=== PATIENT | male | born 2000 ===

== ENCOUNTER 2019-07-29 02:15 | Emergency (ER) | payer BC ==
[2019-07-29 02:44] LABS: BARBITURATE SCREEN,URINE NEGATIVE (NEGATIVE); BENZODIAZEPINES SCREEN,URINE NEGATIVE (NEGATIVE); EDDP,URINE SCREEN NEGATIVE (NEGATIVE); METHAMPHETAMINE SCREEN, URINE NEGATIVE (NEGATIVE); TCA SCREEN,URINE NEGATIVE (NEGATIVE); THC SCREEN,URINE 50 NG/ML NEGATIVE (NEGATIVE)
[2019-07-29 02:56] LABS: CHLORIDE,CL 107 mmol/L (54-184); SODIUM,NA 146 mmol/L (69-191)
[2019-07-29 02:57] LABS: ANION GAP 20.1 mmol/L (10-20)
--- NOTE | 2019-07-29 02:57 | EDM.PDOCBH ---
ED HPI GENERAL MEDICAL PROBLEM - General Chief Complaint: Drug or Alcohol Abuse Stated Complaint: Detox Time Seen by Provider: 07/29/19 02:25 Source of Information: Reports: Patient, Police History Limitations: Reports: No Limitations - History of Present Illness INITIAL COMMENTS - FREE TEXT/NARRATIVE: Patient presents to ER with police for medical clearance for detox. He had gotten in to an argument with his parents earlier as well as his girlfriend was concerned about him. He had made a comment that he was going to jump off the balcony of his apartment. Earlier, he had ran around outside, was laying on the ground and concerned that he was trying to run out in front of cars. He denies being suicidal. Does admit that he made the comment about the balcony but states "would never actually do that". Denies running out in front of vehicles. Admits that he has drank heavily tonight, consumed much whiskey. History of alcoholism. Recently got out of treatment for this, has been sober for 32 days. "the craving for alcohol just got to him today". Does admit to history of depression, is currently on Sertraline. Doesn't feel it has helped him all that much as has been taking it since he was 12. States gets frustrated that "he can't just have a drink like everyone else, knows that he will never stop at 1-2". Aware he has a drinking problem. Denies chest pain, shortness of breath, nausea, vomiting or abdominal pain. Onset: Today Duration: Hour(s): Location: Reports: Generalized Associated Symptoms: Denies: Confusion, Chest Pain, Cough, Fever/Chills, Loss of Appetite, Nausea/Vomiting, Shortness of Breath - Related Data Allergies Allergy/AdvReac Type Severity Reaction Status Date / Time No Known Allergies Allergy Verified 07/29/19 02:43 Past Medical History Psychiatric History: Reports: Depression Social & Family History - Tobacco Use Smoking Status *Q: Never Smoker - Alcohol Use Alcohol Use History: Yes ED ROS GENERAL - Review of Systems Review Of Systems: See Below Constitutional: Denies: Fever, Chills, Malaise, Weakness, Decreased Appetite HEENT: Denies: Ear Pain, Sinus Problem, Throat Pain, Vertigo Respiratory: Denies: Shortness of Breath, Cough Cardiovascular: Denies: Chest Pain, Edema, Lightheadedness Endocrine: Denies: Fatigue GI/Abdominal: Denies: Abdominal Pain, Nausea, Vomiting : Reports: No Symptoms Musculoskeletal: Reports: No Symptoms Skin: Reports: No Symptoms Neurological: Reports: No Symptoms Psychiatric: Reports: No Symptoms ED EXAM, BEHAVIORAL HEALTH - Physical Exam Exam: See Below Exam Limited By: No Limitations General Appearance: Alert, WD/WN, No Apparent Distress Eye Exam: Bilateral Eye: PERRL Ears: Normal External Exam, Normal TMs Nose: Normal Inspection, Normal Mucosa, No Blood Throat/Mouth: Normal Inspection, Normal Oropharynx Head: Normocephalic Neck: Normal Inspection, Supple, Non-Tender Respiratory/Chest: No Respiratory Distress, Lungs Clear, Normal Breath Sounds Cardiovascular: Regular Rate, Rhythm GI/Abdominal: Normal Bowel Sounds, Soft, Non-Tender Extremities: Normal Inspection, No Pedal Edema Neurological: Alert, Normal Mood/Affect, CN II-XII Intact, Oriented x 3 Skin Exam: Warm, Dry COURSE, BEHAVIORAL HEALTH COMP - Course Orders, Labs, Meds: Active Orders 24 hr Category Date Time Status BASIC METABOLIC PANEL,BMP [CHEM] Stat Lab 07/29/19 02:26 Ordered ETHANOL BLOOD MEDICAL [CHEM] Stat Lab 07/29/19 02:25 Ordered Laboratory Tests 07/29/19 07/29/19 Range/Units 02:25 02:38 WBC 8.2 (4.0-10.0) x10^3/uL RBC 5.14 (4.5-6.0) x10^6/uL Hgb 16.9 (14.0-18.0) g/dL Hct 47.9 (40.0-52.0) % MCV 93.2 H (78.0-93.0) fL MCH 32.9 H (26.0-32.0) pg MCHC 35.3 (32.0-36.0) g/dL RDW Coeff of Sidra 11.2 (10.0-15.0) % Plt Count 264 (130-400) x10^3/uL Neut % (Auto) 54.0 (50.0-80.0) % Lymph % (Auto) 39.9 (25.0-50.0) % [place] % (Auto) 5.3 (2.0-11.0) % Eos % (Auto) 0.4 (0.0-4.0) % Baso % (Auto) 0.4 (0.2-1.2) % Urine Opiates Screen Negative (NEAGTIVE) Ur Buprenorphine Scrn Negative (NEGATIVE) Ur Oxycodone Screen Negative (NEGATIVE) Ur EDDP (Meth Metab) Negative (NEGATIVE) Urine Methadone Screen Negative (NEGATIVE) Ur Barbiturates Screen Negative (NEGATIVE) Ur Tricyclics Screen Negative (NEGATIVE) Ur Phencyclidine Scrn Negative (NEGATIVE) Ur Amphetamine Screen Negative (NEGATIVE) U Methamphetamines Scrn Negative (NEGATIVE) Urine MDMA Screen Negative (NEGATIVE) U Benzodiazepines Scrn Negative (NEGATIVE) U Cocaine Metab Screen Negative (NEGATIVE) U Marijuana (THC) Screen Negative (NEGATIVE) Medical Clearance: 07/29/19 03:00 Labs are all essentially normal. ETOH 275. Drug screen clear Departure - Departure Time of Disposition: 03:03 Disposition: Home, Self-Care 01 Condition: Fair Clinical Impression: Alcohol abuse - Discharge Information *PRESCRIPTION DRUG MONITORING PROGRAM REVIEWED*: No *COPY OF PRESCRIPTION DRUG MONITORING REPORT IN PATIENT YOLI: No Referrals: Lucio Anton NP [Primary Care Provider] - Additional Instructions: 1. Push fluids 2. Release to police department - My Orders Last 24 Hours: My Active Orders 07/29/19 02:25 ETHANOL BLOOD MEDICAL [CHEM] Stat 07/29/19 02:26 BASIC METABOLIC PANEL,BMP [CHEM] Stat - Assessment/Plan Last 24 Hours: My Active Orders 07/29/19 02:25 ETHANOL BLOOD MEDICAL [CHEM] Stat 07/29/19 02:26 BASIC METABOLIC PANEL,BMP [CHEM] Stat
== END 2019-07-29 03:07 | disposition home or self-care (01) ==
LOC: VM.ED 02:15
DX: F10.20 Alcohol dependence, uncomplicated (principal); F32.9 Major depressive disorder, single episode, unspecified; Y90.8 Blood alcohol level of 240 mg/100 ml or more
CPT/HCPCS: 36415; 80048; 80305-QW; 85025; 99283; G0480

== ENCOUNTER 2019-08-19 21:15 | Emergency (ER) | payer BC ==
[2019-08-19] MEDS ORDERED: chlordiazePOXIDE 25 MG Cap PO ONE ×2 (21:53→22:21)
--- NOTE | 2019-08-19 22:16 | EDM.PDOC ---
ED HPI GENERAL MEDICAL PROBLEM - General Chief Complaint: General Stated Complaint: ER Time Seen by Provider: 08/19/19 21:35 Source of Information: Reports: Patient History Limitations: Reports: Intoxication - History of Present Illness INITIAL COMMENTS - FREE TEXT/NARRATIVE: Patient comes into the emergency department for complaint of intoxication. The patient states that he's been drinking a 175 mL of whiskey for the last 2 weeks. She does have an extensive history of alcohol use. He was actually in inpatient drug rehabilitation the entire month of June he states that he was in [facility] out of [facility] for a period of 32 days. He was able to maintain sobriety that entire time however 7 days after he left the rehabilitation Center he ended up relapsing to his current state and has been drinking approximately 175ml per day of whiskey. His last drink was this evening at 7 PM. He also does have a history of began admitted to the hospital for alcohol withdrawal symptoms his last hospitalization the girlfriend states was approximately 4 months ago when he ended up having a seizure and was transported to the ICU and ended up stand 4 days in the ICU for withdrawal syndrome and seizure cautions. Patient states that he has been waking up and drinking immediately for he has tremor sensation and feels agitated. He does drink prior to going to work he does have a few drinks while he is at work and then continues to drink after work until he passes out in the evening. Again as stated above this is been his routine for the last 2 weeks. He denies any suicidal ideation plans or intent. However his girlfriend does state that when he excessively drinks at times he can become emotional and he'll often think that he is better off without being on this earth. Currently he denies having any of these thoughts, plan, or intent. He currently denies having those thoughts this evening. He is also currently on Zoloft 200 mg daily as well as hydroxyzine HCL 25 mg 3 times a day for anxiety and depressive symptoms. He states he has been taking his medications as prescribed. Onset: Gradual Severity: Moderate Improves with: Reports: None Worsens with: Reports: None Associated Symptoms: Reports: No Other Symptoms - Related Data Allergies Allergy/AdvReac Type Severity Reaction Status Date / Time No Known Allergies Allergy Verified 08/19/19 22:56 Home Meds: Home Meds Sertraline [Zoloft] 200 mg PO DAILY 07/29/19 [History] hydrOXYzine HCl [hydrOXYzine] 25 mg PO TID PRN 08/19/19 [History] Past Medical History Cardiovascular History: Reports: Hypertension, Other (See Below) Other Cardiovascular History: Elevated BP without diagnosis of hypertension Gastrointestinal History: Reports: GERD, Other (See Below) Other Gastrointestinal History: Abnormal LFTs. C. Difficile Genitourinary History: Reports: Other (See Below) Other Genitourinary History: Microscopic hematuria Psychiatric History: Reports: Depression Other Psychiatric History: Alcohol Abuse. Tobacco Abuse Endocrine/Metabolic History: Reports: Other (See Below) Other Endocrine/Metabolic History: Hypomagnesemia. Hypokalemia Hematologic History: Reports: Other (See Below) Other Hematologic History: Thrombocytopenia - Infectious Disease History Infectious Disease History: Reports: C-Difficile ED ROS GENERAL - Review of Systems Review Of Systems: Comprehensive ROS is negative, except as noted in HPI. Constitutional: Reports: No Symptoms HEENT: Reports: No Symptoms Respiratory: Reports: No Symptoms Cardiovascular: Reports: No Symptoms Endocrine: Reports: No Symptoms GI/Abdominal: Reports: No Symptoms : Reports: No Symptoms Musculoskeletal: Reports: No Symptoms Skin: Reports: No Symptoms Neurological: Reports: No Symptoms Psychiatric: Reports: No Symptoms Hematologic/Lymphatic: Reports: No Symptoms Immunologic: Reports: No Symptoms ED EXAM, GENERAL - Physical Exam Exam: See Below Exam Limited By: No Limitations General Appearance: Alert, WD/WN, No Apparent Distress Throat/Mouth: Normal Inspection, Normal Lips, Normal Teeth, Normal Gums, Normal Oropharynx, Normal Voice, No Airway Compromise Head: Atraumatic Neck: Normal Inspection, Supple, Non-Tender, Full Range of Motion Respiratory/Chest: No Respiratory Distress, Lungs Clear, Normal Breath Sounds, No Accessory Muscle Use, Chest Non-Tender Cardiovascular: Normal Peripheral Pulses, Regular Rate, Rhythm, No Edema, No Gallop, No JVD, No Murmur, No Rub Back Exam: Normal Inspection, Full Range of Motion, NT Extremities: Normal Inspection, Normal Range of Motion, Non-Tender, Normal Capillary Refill, No Pedal Edema Neurological: Alert, Oriented, CN II-XII Intact, Normal Cognition, Normal Gait, Normal Reflexes, No Motor/Sensory Deficits Psychiatric: Normal Affect, Normal Mood Skin Exam: Warm, Dry, Intact, Normal Color, No Rash Course - Orders/Labs/Meds Orders: Active Orders 24 hr Category Date Time Status EKG Documentation Completion [RC] STAT Care 08/19/19 22:19 Active Sodium Chloride 0.9% [Normal Saline] 1,000 ml Med 08/19/19 22:22 Active IV ONETIME Sodium Chloride 0.9% [Saline Flush] Med 08/19/19 22:21 Active 10 ml FLUSH ASDIRECTED PRN Peripheral IV Insertion Adult [OM.PC] Stat Oth 08/19/19 22:21 Ordered Medication Orders Sodium Chloride (Normal Saline) 1,000 mls @ 999 mls/hr IV ONETIME ONE Stop: 08/19/19 23:22 Sodium Chloride (Saline Flush) 10 ml FLUSH ASDIRECTED PRN PRN Reason: Keep Vein Open Labs: Laboratory Tests 08/19/19 08/19/19 08/19/19 Range/Units 22:15 22:15 22:15 WBC 5.4 (4.0-10.0) x10^3/uL RBC 4.96 (4.5-6.0) x10^6/uL Hgb 16.1 (14.0-18.0) g/dL Hct 45.9 (40.0-52.0) % MCV 92.5 (78.0-93.0) fL MCH 32.5 H (26.0-32.0) pg MCHC 35.1 (32.0-36.0) g/dL RDW Coeff of Sidra 13.8 (10.0-15.0) % Plt Count 99 L D (130-400) x10^3/uL Neut % (Auto) 57.5 (50.0-80.0) % Lymph % (Auto) 28.0 (25.0-50.0) % [place] % (Auto) 14.1 H (2.0-11.0) % Eos % (Auto) 0.2 (0.0-4.0) % Baso % (Auto) 0.2 (0.2-1.2) % Sodium 144 (136-145) mmol/L Potassium 3.5 (3.5-5.1) mmol/L Chloride 102 (98-107) mmol/L Carbon Dioxide 25 (21-32) mmol/L Anion Gap 20.5 H (10-20) mmol/L BUN 9 (7-18) mg/dL Creatinine 1.1 (0.70-1.30) mg/dL Est Cr Clr Drug Dosing TNP Estimated GFR (MDRD) > 60 Glucose 112 H (74-106) mg/dL Calcium 8.9 (8.5-10.1) mg/dL Corrected Calcium 8.58 (8.5-10.1) mg/dL Total Bilirubin 0.4 (0.2-1.0) mg/dL AST 280 H (15-37) U/L ALT 237 H (16-63) U/L Alkaline Phosphatase 152 H (46-116) U/L Total Protein 8.8 H (6.4-8.2) g/dL Albumin 4.4 (3.4-5.0) g/dL Globulin 4.4 Albumin/Globulin Ratio 1.00 Amylase 51 (25-115) U/L Lipase 145 (73-393) U/L Urine Opiates Screen Negative (NEGATIVE) Ur Buprenorphine Scrn Negative (NEGATIVE) Ur Oxycodone Screen Negative (NEGATIVE) Ur EDDP (Meth Metab) Negative (NEGATIVE) Urine Methadone Screen Negative (NEGATIVE) Ur Barbituates Screen Negative (NEGATIVE) Ur Tricyclics Screen Negative (NEGATIVE) Ur Phencyclidine Scrn Negative (NEGATIVE) Ur Amphetamines Screen Negative (NEGATIVE) U Methamphetamines Scrn Negative (NEGATIVE) Urine MDMA Screen Negative (NEGATIVE) U Benzodiazepines Scrn Negative (NEGATIVE) Urine Cocaine Screen Negative (NEGATIVE) U Marijuana (THC) Screen Negative (NEGATIVE) Ethyl Alcohol (0-3) mg/dL 08/19/19 Range/Units 22:15 WBC (4.0-10.0) x10^3/uL RBC (4.5-6.0) x10^6/uL Hgb (14.0-18.0) g/dL Hct (40.0-52.0) % MCV (78.0-93.0) fL MCH (26.0-32.0) pg MCHC (32.0-36.0) g/dL RDW Coeff of Sidra (10.0-15.0) % Plt Count (130-400) x10^3/uL Neut % (Auto) (50.0-80.0) % Lymph % (Auto) (25.0-50.0) % [place] % (Auto) (2.0-11.0) % Eos % (Auto) (0.0-4.0) % Baso % (Auto) (0.2-1.2) % Sodium (136-145) mmol/L Potassium (3.5-5.1) mmol/L Chloride (98-107) mmol/L Carbon Dioxide (21-32) mmol/L Anion Gap (10-20) mmol/L BUN (7-18) mg/dL Creatinine (0.70-1.30) mg/dL Est Cr Clr Drug Dosing Estimated GFR (MDRD) Glucose (74-106) mg/dL Calcium (8.5-10.1) mg/dL Corrected Calcium (8.5-10.1) mg/dL Total Bilirubin (0.2-1.0) mg/dL AST (15-37) U/L ALT (16-63) U/L Alkaline Phosphatase (46-116) U/L Total Protein (6.4-8.2) g/dL Albumin (3.4-5.0) g/dL Globulin Albumin/Globulin Ratio Amylase (25-115) U/L Lipase (73-393) U/L Urine Opiates Screen (NEGATIVE) Ur Buprenorphine Scrn (NEGATIVE) Ur Oxycodone Screen (NEGATIVE) Ur EDDP (Meth Metab) (NEGATIVE) Urine Methadone Screen (NEGATIVE) Ur Barbituates Screen (NEGATIVE) Ur Tricyclics Screen (NEGATIVE) Ur Phencyclidine Scrn (NEGATIVE) Ur Amphetamines Screen (NEGATIVE) U Methamphetamines Scrn (NEGATIVE) Urine MDMA Screen (NEGATIVE) U Benzodiazepines Scrn (NEGATIVE) Urine Cocaine Screen (NEGATIVE) U Marijuana (THC) Screen (NEGATIVE) Ethyl Alcohol 317 H* (0-3) mg/dL Meds: Medications Generic Name Dose Route Start Last Admin Trade Name Freq PRN Reason Stop Dose Admin Sodium Chloride 1,000 mls @ 999 mls/hr 08/19/19 22:22 Normal Saline IV 08/19/19 23:22 ONETIME ONE Sodium Chloride 10 ml 08/19/19 22:21 Saline Flush FLUSH ASDIRECTED PRN Keep Vein Open Discontinued Medications Generic Name Dose Route Start Last Admin Trade Name Freq PRN Reason Stop Dose Admin Chlordiazepoxide HCl 100 mg 08/19/19 21:53 Librium PO 08/19/19 21:54 ONETIME ONE Chlordiazepoxide HCl 50 mg 08/19/19 22:21 Librium PO 08/19/19 22:22 ONETIME ONE Departure - Departure Time of Disposition: 23:40 Disposition: DC/Tfer to Psych Hosp/Unit 65 Condition: Good Clinical Impression: Alcohol abuse Acute alcohol intoxication Qualifiers: Complication of substance-induced condition: uncomplicated Qualified Code(s): F10.920 - Alcohol use, unspecified with intoxication, uncomplicated - Discharge Information *PRESCRIPTION DRUG MONITORING PROGRAM REVIEWED*: Not Applicable *COPY OF PRESCRIPTION DRUG MONITORING REPORT IN PATIENT YOLI: Not Applicable Instructions: Alcohol Use Disorder, Substance Use Disorder, Alcohol Withdrawal Syndrome, [id number] Referrals: Lucio Anton NP [Primary Care Provider] - Forms: Interfacility Transfer EMTALA - My Orders Last 24 Hours: My Active Orders 08/19/19 22:19 EKG Documentation Completion [RC] STAT 08/19/19 22:21 Sodium Chloride 0.9% [Saline Flush] 10 ml FLUSH ASDIRECTED PRN Peripheral IV Insertion Adult [OM.PC] Stat 08/19/19 22:22 Sodium Chloride 0.9% [Normal Saline] 1,000 ml IV ONETIME - Assessment/Plan Last 24 Hours: My Active Orders 08/19/19 22:19 EKG Documentation Completion [RC] STAT 08/19/19 22:21 Sodium Chloride 0.9% [Saline Flush] 10 ml FLUSH ASDIRECTED PRN Peripheral IV Insertion Adult [OM.PC] Stat 08/19/19 22:22 Sodium Chloride 0.9% [Normal Saline] 1,000 ml IV ONETIME Assessment:: 1. Acute alcohol intoxication Plan: 1. Labs completed in the emergency department results reviewed with patient 2. Urine tox completed in the emergency department results reviewed with the patient 3. EKG completed in the emergency department results reviewed with patient 4. [facility] screener contacted regarding admission for acute detox and drug/alcohol treatment screening at 2300. 2330 Screener called back with acceptance to detox unit. 5. Patient was given 1 L Normal saline in the ER 6. Patient was given 50mg Librium for tremors 7. Patient is agreeable to be transported by his mother. 8. All questions and concerns were addressed with patient prior to discharge
[2019-08-19] MEDS ORDERED: Sodium Chloride 0.9% 10 ML Syringe FLUSH PRN (22:21)
[2019-08-19] MEDS ORDERED: Sodium Chloride 0.9% 1,000 ML IV ONE (22:22)
[2019-08-19 22:27] LABS: BUPRENORPHINE,URINE NEGATIVE (NEGATIVE); MARIJUANA,URINE NEGATIVE (NEGATIVE); METHYLENEDIOXYMETHAMP,UR NEGATIVE (NEGATIVE); PHENCYCLIDINE,URINE NEGATIVE (NEGATIVE)
[2019-08-19 22:51] LABS: CHLORIDE,CL 102 mmol/L (98-107); SODIUM,NA 144 mmol/L (136-145)
[2019-08-19 22:52] LABS: ANION GAP 20.5 mmol/L (10-20)
== END 2019-08-20 00:25 ==
LOC: VM.ED 21:15
DX: F10.239 Alcohol dependence with withdrawal, unspecified (principal); F10.229 Alcohol dependence with intoxication, unspecified; Y90.8 Blood alcohol level of 240 mg/100 ml or more; I10 Essential (primary) hypertension; F32.9 Major depressive disorder, single episode, unspecified; F41.9 Anxiety disorder, unspecified; Z79.899 Other long term (current) drug therapy
CPT/HCPCS: 36415; 80053; 80305-QW; 82150; 83690; 85025; 93005; 96360; 99285-25; A9270-GY; G0480; J7030

== ENCOUNTER 2019-09-04 22:32 | Emergency (ER) | payer BC ==
--- NOTE | 2019-09-04 23:08 | EDM.PDOC ---
ED HPI GENERAL MEDICAL PROBLEM - General Stated Complaint: SCREENING Time Seen by Provider: 09/04/19 23:08 - History of Present Illness INITIAL COMMENTS - FREE TEXT/NARRATIVE: PT hx of etoh abuse was in treatment last month. Lost his job this am drinking tonight was picked up by ADAIR stated he wanted to kill himself. At this time states he is sobering up was just upset earlier is not having any thoughts of SI just states was upset and said "dumb shit" - Related Data Allergies Allergy/AdvReac Type Severity Reaction Status Date / Time No Known Allergies Allergy Verified 08/19/19 22:56 Home Meds: Home Meds Sertraline [Zoloft] 200 mg PO DAILY 07/29/19 [History] hydrOXYzine HCl [hydrOXYzine] 25 mg PO TID PRN 08/19/19 [History] Past Medical History Cardiovascular History: Reports: Hypertension, Other (See Below) Other Cardiovascular History: Elevated BP without diagnosis of hypertension Gastrointestinal History: Reports: GERD, Other (See Below) Other Gastrointestinal History: Abnormal LFTs. C. Difficile Genitourinary History: Reports: Other (See Below) Other Genitourinary History: Microscopic hematuria Psychiatric History: Reports: Depression Other Psychiatric History: Alcohol Abuse. Tobacco Abuse Endocrine/Metabolic History: Reports: Other (See Below) Other Endocrine/Metabolic History: Hypomagnesemia. Hypokalemia Hematologic History: Reports: Other (See Below) Other Hematologic History: Thrombocytopenia - Infectious Disease History Infectious Disease History: Reports: C-Difficile ED ROS GENERAL - Review of Systems Review Of Systems: See Below Constitutional: Reports: No Symptoms HEENT: Reports: No Symptoms Respiratory: Reports: No Symptoms Cardiovascular: Reports: No Symptoms Endocrine: Reports: No Symptoms GI/Abdominal: Reports: No Symptoms : Reports: No Symptoms Musculoskeletal: Reports: No Symptoms Skin: Reports: No Symptoms Neurological: Reports: No Symptoms Psychiatric: Reports: No Symptoms ED EXAM, GENERAL - Physical Exam Exam: See Below Exam Limited By: No Limitations General Appearance: Alert, WD/WN, No Apparent Distress Ears: Normal External Exam, Normal Canal, Hearing Grossly Normal, Normal TMs Nose: Normal Inspection, Normal Mucosa, No Blood Throat/Mouth: Normal Inspection, Normal Lips, Normal Teeth, Normal Gums, Normal Oropharynx, Normal Voice, No Airway Compromise Head: Atraumatic, Normocephalic Neck: Normal Inspection, Supple, Non-Tender, Full Range of Motion Respiratory/Chest: No Respiratory Distress, Lungs Clear, Normal Breath Sounds, No Accessory Muscle Use, Chest Non-Tender Cardiovascular: Normal Peripheral Pulses Neurological: Alert, Oriented, CN II-XII Intact, Normal Cognition, Normal Gait, Normal Reflexes, No Motor/Sensory Deficits Psychiatric: Normal Affect, Normal Mood, Other (pt denies any thoughts of SI or HI states has family at home, would call 911 any thoughts of SI or HI, is down he drank tonight and lost his job, but denies any thoughts of self harm. ) Departure - Departure Time of Disposition: 23:19 Disposition: Home, Self-Care 01 Condition: Good Clinical Impression: ETOH abuse - Discharge Information Instructions: Alcohol Use Disorder Referrals: Lucio Anton NP [Primary Care Provider] - Care Plan Goals: Continue meetings / classes regarding alcohol use, follow up with pcp for continued care. Sepsis Event Note - Focused Exam Date Exam was Performed: 09/04/19 Time Exam was Performed: 23:15
== END 2019-09-04 23:38 | disposition home or self-care (01) ==
LOC: VM.ED 22:32
DX: F10.10 Alcohol abuse, uncomplicated (principal); I10 Essential (primary) hypertension; F32.9 Major depressive disorder, single episode, unspecified; Z79.899 Other long term (current) drug therapy
CPT/HCPCS: 99283